=== PATIENT | female | born 1970 | race Hispanic/Latino ===

== ENCOUNTER → 2020-07-22 | Outpatient (CLI) | payer MEDICAID ==
[~2020-07-22] MED LIST: ACET1TAB16; AMBI10TA PO; BUSP15TA47; CLOB-25 TOP; DOCU10CA PO; DRIS50003 PO; IMIT100T PO; LEVO100T5; LEVO100T54 PO; PERC5TAB12 PO; PRAZ1CAP; PRED10PA PO; PROT1TAB2 PO; RANI15TA PO; REGL5TAB2 PO; REST15CA PO; SERT-138; ZOLP5TAB; flexeril PO
== END ==
LOC: M LABSMTC 09:45
PROVIDERS: ATTEND Anesthesiology
DX: Z01.812 Encounter for preprocedural laboratory examination (principal); Z20.828 Contact with and (suspected) exposure to other viral communicable diseases

== ENCOUNTER 2020-07-26 11:40 | Day surgery (SDC) | payer MEDICAID ==
[~2020-07-26] VITALS: Ht 162.6 cm; Wt 67.6 kg
[~2020-07-26 11:40] MED LIST changes: +NS 1,000 ML IV ONE
[2020-07-26] MEDS ORDERED: LIDOCAINE 2% 100MG/5ML SDV (FOR ANES.) As Ordered ONE (12:29)
[2020-07-26] MEDS ORDERED: propofoL 200 MG/20 ML VIAL As Ordered ONE ×2 (12:29→13:59)
[2020-07-26] MEDS ORDERED: fentaNYL 100 MCG/2 ML INJECTION (J3010) As Ordered ONE (12:30)
--- NOTE | 2020-07-26 13:44 | ROOR ---
Patient Name: Annalise Guevara Procedure Date: 07/26/2020 1:22 PM Date of : 1970 Age: 50 Room: [facility] Gender: Female Note Status: Finalized Procedure: Upper Endoscopy + Biopsies Indications: Heartburn, Early satiety, Nausea with vomiting Providers: Miguel Donovan MD Referring MD: Jacquelyn Villagomez NP Requesting Provider: Medicines: Monitored Anesthesia Care Complications: No immediate complications. Procedure: Pre-Anesthesia Assessment: - The heart rate, respiratory rate, oxygen saturations, blood pressure, adequacy of pulmonary ventilation, and response to care were monitored throughout the procedure. The Endoscope was introduced through the mouth, and advanced to the second part of duodenum. The upper GI endoscopy was accomplished without difficulty. The patient tolerated the procedure well. Findings: The Z-line was irregular and was found 35 cm from the incisors. Multiple biopsies were obtained with cold forceps for evaluation to rule out Daniel's Esophagus randomly at the gastroesophageal junction. A small hiatal hernia was present. No other significant abnormalities were identified in a careful examination of the stomach. Biopsies were taken with a cold forceps in the gastric antrum for Helicobacter pylori testing. The exam of the duodenum was otherwise normal. Biopsies for histology were taken with a cold forceps in the first portion of the duodenum for evaluation of celiac disease. The exam was otherwise without abnormality. Impression: - Z-line irregular, 35 cm from the incisors. - Small hiatal hernia. - The examination was otherwise normal. - Multiple biopsies were obtained at the gastroesophageal junction. - Biopsies were taken with a cold forceps for Helicobacter pylori testing. - Biopsies were taken with a cold forceps for evaluation of celiac disease. - The examination was otherwise normal. Recommendation: - Patient has a contact number available for emergencies. The signs and symptoms of potential delayed complications were discussed with the patient. Return to normal activities tomorrow. Written discharge instructions were provided to the patient. - High fiber diet. - Discharge patient to home. - Continue present medications. - Await pathology results. - Telephone GI clinic for pathology results in 1 week. - Return to referring physician. - The findings and recommendations were discussed with the patient. Procedure Code(s): --- Professional --- 12517, Esophagogastroduodenoscopy, flexible, transoral; with biopsy, single or multiple Diagnosis Code(s): --- Professional --- K22.8, Other specified diseases of esophagus K44.9, Diaphragmatic hernia without obstruction or gangrene R12, Heartburn R68.81, Early satiety R11.2, Nausea with vomiting, unspecified CPT copyright 2019 [employer]. All rights reserved. The codes documented in this report are preliminary and upon mixer and blender review may be revised to meet current compliance requirements. Miguel Donovan MD Miguel Donovan MD 07/26/2020 1:43:43 PM Electronically signed by Miguel Donovan MD Number of Addenda: 0 Note Initiated On: 07/26/2020 1:22 PM Estimated Blood Loss: Estimated blood loss: none.
[2020-07-26 14:26] VITALS: BP 97/54
--- NOTE | 2020-07-26 14:52 | ROOR ---
Patient Name: Annalise Guevara Procedure Date: 07/26/2020 1:23 PM Date of : 1970 Age: 50 Room: [facility] Gender: Female Note Status: Finalized Procedure: Total Colonoscopy to Cecum + ileoscopy + Bx Indications: Change in bowel habits, Clinically significant diarrhea of unexplained origin Providers: Miguel Donovan MD Referring MD: Jacquelyn Villagomez NP Requesting Provider: Medicines: Monitored Anesthesia Care Complications: No immediate complications. Procedure: Pre-Anesthesia Assessment: - The heart rate, respiratory rate, oxygen saturations, blood pressure, adequacy of pulmonary ventilation, and response to care were monitored throughout the procedure. The Colonoscope was introduced through the anus and advanced to the terminal ileum. The colonoscopy was performed without difficulty. The patient tolerated the procedure well. The quality of the bowel preparation was good. Findings: The perianal and digital rectal examinations were normal. Non-bleeding internal hemorrhoids were found during retroflexion. The hemorrhoids were small and Grade I (internal hemorrhoids that do not prolapse). The exam was otherwise normal throughout the examined colon. Biopsies for histology were taken with a cold forceps from the ascending colon, transverse colon, descending colon and rectosigmoid colon for evaluation of microscopic colitis. The exam was otherwise without abnormality. The terminal ileum appeared normal. Impression: - Non-bleeding internal hemorrhoids. - The examination was otherwise normal. - The examined portion of the ileum was normal. - Biopsies were taken with a cold forceps from the ascending colon, transverse colon, descending colon and rectosigmoid colon for evaluation of microscopic colitis. - The exam was otherwise normal to the cecum. Recommendation: - Patient has a contact number available for emergencies. The signs and symptoms of potential delayed complications were discussed with the patient. Return to normal activities tomorrow. Written discharge instructions were provided to the patient. - High fiber diet. - Discharge patient to home. - Continue present medications. - Await pathology results. - Telephone GI clinic for pathology results in 1 week. - Repeat colonoscopy in 10 years for screening purposes. - Return to referring physician. - The findings and recommendations were discussed with the patient. Procedure Code(s): --- Professional --- 88184, Colonoscopy, flexible; with biopsy, single or multiple Diagnosis Code(s): --- Professional --- K64.0, First degree hemorrhoids R19.4, Change in bowel habit R19.7, Diarrhea, unspecified CPT copyright 2019 [employer] [place] [employer]. All rights reserved. The codes documented in this report are preliminary and upon toilet products molder review may be revised to meet current compliance requirements. Miguel Donovan MD Miguel Donovan MD 07/26/2020 2:51:54 PM Electronically signed by Miguel Donovan MD Number of Addenda: 0 Note Initiated On: 07/26/2020 1:23 PM Estimated Blood Loss: Estimated blood loss: none.
== END 2020-07-26 14:33 | disposition home or self-care (01) ==
LOC: M OPP 11:40
PROVIDERS: ATTEND Internal Medicine Gastroenterology
DX: K64.0 First degree hemorrhoids (principal); R19.4 Change in bowel habit; K22.8 Other specified diseases of esophagus; R19.7 Diarrhea, unspecified; K44.9 Diaphragmatic hernia without obstruction or gangrene; R12 Heartburn; R68.81 Early satiety; R11.2 Nausea with vomiting, unspecified; E03.9 Hypothyroidism, unspecified; R93.89 Abnormal findings on diagnostic imaging of other specified body structures; Z79.899 Other long term (current) drug therapy; Z88.0 Allergy status to penicillin; R10.11 Right upper quadrant pain; Z88.8 Allergy status to other drugs, medicaments and biological substances
CPT/HCPCS: 43239; 45380; 88305; J3010

== ENCOUNTER → 2023-05-05 | Outpatient (REF) | payer OTHER ==
[~2023-05-05] MED LIST changes: -ACET1TAB16; +ACET300T48; -NS 1,000 ML IV ONE
== END ==
LOC: M SFHCRHEU 16:23
PROVIDERS: ATTEND Internal Medicine
DX: Z53.9 Procedure and treatment not carried out, unspecified reason (principal)

== ENCOUNTER 2023-06-04 12:47 | Day surgery (SDC) | payer BC ==
[~2023-06-04] VITALS: Ht 157.5 cm; Wt 64.7 kg
[~2023-06-04 12:47] MED LIST changes: +BUSP10TA79 PO; +CLOB0.0548 TOP; +ESTR0.1C5 VG; +HYDR50TA70 PO; -LEVO100T5; +LEVO100T5 PO; +MELO15TA28 PO; +NS 1,000 ML IV ONE; +OMEP40CA5 PO; +QUET50TA4 PO; +TIZA2TA PO; +TIZA4CAP PO; +ZOLO100T PO; +ZOLP10TA2 PO
[2023-06-04] MEDS ORDERED: propofoL 200 MG/20 ML VIAL As Ordered ONE (14:32)
[2023-06-04] MEDS ORDERED: LIDOCAINE 2% 100MG/5ML SDV (FOR ANES.) As Ordered ONE (14:32)
[2023-06-04] MEDS ORDERED: fentaNYL 100 MCG/2 ML INJECTION As Ordered ONE (14:33)
[2023-06-04 15:04] VITALS: TEMP 97.6
[2023-06-04] MEDS ORDERED: SIMETHICONE 40MG/0.6ML DROPS 30ML As Ordered ONE (15:04)
[2023-06-04 15:17] VITALS: BP 119/87; O2SAT 99
== END 2023-06-04 15:28 | disposition home or self-care (01) ==
LOC: M OPP 12:47
PROVIDERS: ATTEND Internal Medicine Gastroenterology
DX: K64.0 First degree hemorrhoids (principal); K62.5 Hemorrhage of anus and rectum; K22.89 Other specified disease of esophagus; K44.9 Diaphragmatic hernia without obstruction or gangrene; K31.89 Other diseases of stomach and duodenum; R11.10 Vomiting, unspecified; Z79.83 Long term (current) use of bisphosphonates; Z79.890 Hormone replacement therapy; Z79.891 Long term (current) use of opiate analgesic; Z79.899 Other long term (current) drug therapy; Z88.0 Allergy status to penicillin; Z88.5 Allergy status to narcotic agent; Z88.8 Allergy status to other drugs, medicaments and biological substances
CPT/HCPCS: 43239; 45378; 88305; J3010